=== PATIENT | female | born 1980 | race Caucasian/White ===

== ENCOUNTER 2023-10-10 10:51 | Day surgery (SDC) | payer OTHER ==
[~2023-10-10] VITALS: Ht 172.7 cm; Wt 91.7 kg
[2023-10-10] VITALS (10 sets, daily range): BP systolic 87–137; BP diastolic 45–83; PULSE 74–114; TEMP 97.4–98.4
[~2023-10-10 10:51] MED LIST: HYDROmorphone 2 MG/1 ML VIAL IV PRN; LR 1,000 ML IV SCH; Morphine 4 MG/ML VIAL IV PRN; Ondansetron 4 MG/2 ML VIAL IV PRN; Ondansetron 4 MG/2 ML VIAL IV SCH; Scopolamine 1 MG Delivered 3-Day PATCH TD SCH; diazePAM 5 MG TAB PO SCH; droPERidol 2.5 MG/ML 2 ML VIAL IV PRN; fentaNYL 50 MCG/ML 2 ML VIAL IV PRN
[2023-10-10] MEDS ORDERED: AIRBORNE CHEWA1 EAC1 PO (11:21)
[2023-10-10] MEDS ORDERED: CLARITIN-D 10 M1 T24 PO (11:22)
[2023-10-10] MEDS ORDERED: fentaNYL 50 MCG/ML 5 ML VIAL ONE (12:41)
[2023-10-10] MEDS ORDERED: Ketorolac 30 MG/ML VIAL ONE (12:42)
[2023-10-10] MEDS ORDERED: Ondansetron 4 MG/2 ML VIAL ONE (12:42)
[2023-10-10] MEDS ORDERED: Lidocaine PF 2% (20 MG/ML) 5 ML VIAL ONE (12:43)
[2023-10-10] MEDS ORDERED: Gentamicin/Sodium Chloride 100 ML IV ONE (12:45)
[2023-10-10] MEDS ORDERED: Rocuronium 50 MG/5 ML Multi-Dose VIAL ONE ×2 (12:46→13:41)
[2023-10-10] MEDS ORDERED: Clindamycin 0 ML IV ONE ×2 (12:47→12:48)
[2023-10-10] MEDS ORDERED: dexAMETHasone 10 MG/ML VIAL ONE (12:49)
[2023-10-10] MEDS ORDERED: ePHEDrine 50 MG/ML VIAL ONE (13:35)
[2023-10-10] MEDS ORDERED: Topical Skin Adhesive 1 EACH (1 ML) TOP ONE (14:36)
[2023-10-10] MEDS ORDERED: Lidocaine 2% (20 MG/ML) 20 ML UROJET UR ONE (14:36)
[2023-10-10] MEDS ORDERED: fentaNYL 50 MCG/ML 2 ML VIAL ONE (14:39)
[2023-10-10] MEDS ORDERED: Ondansetron 4 MG/2 ML VIAL IV PRN (15:30)
[2023-10-10] MEDS ORDERED: Acetaminophen 500 MG TAB PO PRN (15:30)
[2023-10-10] MEDS ORDERED: LR 1,000 ML IV SCH (15:30)
[2023-10-10] MEDS ORDERED: oxyCODONE 5 MG TAB PO PRN (15:30)
[2023-10-10] MEDS ORDERED: Naloxone 0.4 MG/ML VIAL IV PRN (15:30)
--- NOTE | 2023-10-10 16:50 | NUR ---
Pt arrived to the floor from [facility]. Pt is alert and oriented, some pain complaints due to the rabago catheter. Pt rating it 4/10 at this time. Abd lap sites are all well approximated with no redness or drainage noted. Heart rate regular and lungs sounds clear. SCDs on bilaterally. IVf infusing to left hand at 125ml/hr. Spouse is at bedside. Oriented pt to her room and educated on room service. O2 on 2L per NC per order. Call light within reach
--- NOTE | 2023-10-10 18:38 | NUR ---
Pt continues to do well. She is tolerating general diet with no complaints of N/V. PRN pain medication given per request at this time. No other needs, will continue to monitor
--- NOTE | 2023-10-10 19:15 | NUR ---
PT RESTING IN BED. A&O. PAIN CONTROLLED. AT BEDSIDE. PT EATING AND DRINKING. F/ CATRH DRAINING CLEAR DILUTE URINE IN SUFF QUANITIES. VSS.
--- NOTE | 2023-10-10 20:45 | NUR ---
PT AMB IN [place]. TOLERATING WELL. STABLE STATUS. BACK TO BED. NO OTHER NEEDS. CALL LIGHT IN REACH.
[2023-10-10] MEDS ORDERED: Docusate Sodium 100 MG CAP PO SCH (21:00)
[2023-10-10] MEDS ORDERED: Ibuprofen 800 MG TAB PO SCH (21:30)
[2023-10-11 03:55] VITALS: BP 106/66; PULSE 92; TEMP 98.4
--- NOTE | 2023-10-11 05:45 | NUR ---
DC'D GR W/O DIFFICULTY. JUDI CARE GIVEN. MINIMAL VAGINAL BLEEDING. NEW V PAD PLACED. GOOD UO THROUGHT THIS SHIFT.
[2023-10-11 07:32] VITALS: BP 107/70; PULSE 90; TEMP 98.6
--- NOTE | 2023-10-11 07:40 | NUR ---
Patient up and we ambulated halls, stand by assist. Patient up in chair, tolerating breakfast, reports it tasting good. Robotic lap site x4 edges well approximated. Abdomen soft. Voided pale yellow urine without troubles. Anticipating discharge home. Will monitor
--- NOTE | 2023-10-11 08:52 | NUR ---
rounded, plan of care reviewed. Iv DC per her verbal order. Patient awaitng her husbands arrival for discharge home
--- NOTE | 2023-10-11 10:41 | NUR ---
Patient ready to get home, her spouse here to take her. We reviewed all discharge education, including her script she already has percocet & motrin. We reviewed last dose taken and next dose time. Medication list and medication safety reviewed. Incsions cares and activity and diet discussed. Patient ambulated out with her taking her home. All questions answered and follow up appts reviewed.
== END 2023-10-11 10:47 | disposition home or self-care (01) ==
LOC: SDCO 10:51 → SURG 16:30 → SDCO 10-11 10:47
DX: N92.0 Excessive and frequent menstruation with regular cycle (principal); N83.12 Corpus luteum cyst of left ovary; N83.8 Other noninflammatory disorders of ovary, fallopian tube and broad ligament; N72 Inflammatory disease of cervix uteri; N88.8 Other specified noninflammatory disorders of cervix uteri; N94.6 Dysmenorrhea, unspecified; N94.10 Unspecified dyspareunia; Z98.891 History of uterine scar from previous surgery; R19.2 Visible peristalsis
CPT/HCPCS: OP; A4314; J0737; J1100; J1580; J1885; J2405; J2704; J3010; J7120